=== PATIENT | male | born 1945 | race Caucasian/White ===

== ENCOUNTER 2017-05-15 19:34 | Emergency (ER) | payer OTHER, MEDICARE ==
[2017-05-15 19:40] VITALS: TEMP 97.8
[2017-05-15 20:05] LABS: BASOPHILS % (AUTO) 1 % (0-3); EOSINOPHILS % (AUTO) 5 % (0-9); HEMATOCRIT 34 % (39-53); MEAN CORPUSCULAR HGB CONC 36.6 gm/dl (32.0-36.0); MEAN CORPUSCULAR VOLUME 94 fL (80-100); MONOCYTES % (AUTO) 5.8 % (0-12); NEUTROPHILS % (AUTO) 63.9 % (37-80)
[2017-05-15 20:13] LABS: ALBUMIN 3.4 gm/dl (3.4-5.0); ALT 16 IU/L (14-63); CALCIUM 8.4 mg/dl (8.5-10.1); GLOM FILT RATE 55 mL/min (>60); POTASSIUM 3.6 mMol/L (3.5-5.1); SODIUM 139 mMol/L (136-145)
[2017-05-15] MEDS ORDERED: SODIUM CHLORIDE 0.9% 1000ML 1,000 ML IV ONE (20:58)
[2017-05-15] MEDS ORDERED: SODIUM CHLORIDE 0.9% FLUSH 10 ML SOL IV PRN (21:03)
[2017-05-15 22:29] LABS: APPEARANCE,URINE Clear; BILIRUBIN,URINE NEGATIVE (NEGATIVE); COLOR,URINE Yellow; GLUCOSE, URINE (UA) NEGATIVE (NEGATIVE); KETONES,URINE NEGATIVE (NEGATIVE); LEUKOCYTE ESTERASE ,URINE NEGATIVE (NEGATIVE); NITRATE,URINE NEGATIVE (NEGATIVE); OCCULT BLOOD,URINE NEGATIVE (NEG-TRACE); PH,URINE 6.5; UROBILINOGEN,URINE 0.2 (0.2-1.0 EU)
[2017-05-15 22:50] LABS: RBC,URINE NEG (0-3AV/HPF); WBC,URINE NEG (0-5AV/HPF)
[2017-05-16 00:26] VITALS: BP 171/66; PULSE 70; RESP 18; O2SAT 92
== END 2017-05-16 00:19 | disposition short-term general hospital (02) | DRG 312 ==
LOC: ED 19:34
DX: R55 Syncope and collapse (principal); R42 Dizziness and giddiness; R53.1 Weakness; R06.2 Wheezing
CPT/HCPCS: 36415; 70450; 71010; 71275; 80053; 80307; 81001; 83880; 84484; 85025; 85378; 93005; 99285; Q9967

== ENCOUNTER 2017-07-30 19:53 | Emergency (ER) | payer OTHER, MEDICARE ==
[2017-07-30] MEDS ORDERED: ASPIRIN 81 MG CHEWABLE CTB PO ONE (20:02)
[2017-07-30 20:04] LABS: BASOPHILS % (AUTO) 1 % (0-3); EOSINOPHILS % (AUTO) 4 % (0-9); HEMATOCRIT 35 % (39-53); MEAN CORPUSCULAR HGB CONC 36.4 gm/dl (32.0-36.0); MEAN CORPUSCULAR VOLUME 91 fL (80-100); MONOCYTES % (AUTO) 5.9 % (0-12); NEUTROPHILS % (AUTO) 68.9 % (37-80)
[2017-07-30 20:05] VITALS: PULSE 66; O2SAT 96
[2017-07-30] MEDS ORDERED: ONDANSETRON HCL 4 MG/2 ML SOL IV ONE (20:05)
[2017-07-30] MEDS ORDERED: MECLIZINE HYDROCHLORIDE 12.5 MG TAB PO ONE (20:06)
[2017-07-30] MEDS ORDERED: ONDANSETRON HCL 4 MG/2 ML SOL ONE (20:07)
[2017-07-30] MEDS ORDERED: MECLIZINE HYDROCHLORIDE 12.5 MG TAB ONE (20:07)
[2017-07-30] MEDS ORDERED: SODIUM CHLORIDE 0.9% 1000ML 1,000 ML IV SCH (20:15)
[2017-07-30 20:23] VITALS: BP 136/51; RESP 22; TEMP 98.9
[2017-07-30 20:23] LABS: CALCIUM 9.1 mg/dl (8.5-10.1); GLOM FILT RATE 58 mL/min (>60); POTASSIUM 3.1 mMol/L (3.5-5.1); SODIUM 137 mMol/L (136-145)
[2017-07-30] MEDS ORDERED: POTASSIUM CHLORIDE 10 MEQ TER PO ONE (20:31)
[2017-07-30] MEDS ORDERED: POTASSIUM CHLORIDE 10 MEQ TER ONE (20:33)
== END 2017-07-30 21:25 | disposition home or self-care (01) | DRG 312 ==
LOC: ED 19:53
DX: R55 Syncope and collapse (principal); E87.6 Hypokalemia
CPT/HCPCS: 71010; 80048; 84484; 85025; 93005; 96365; 96374; 99284; J2405

== ENCOUNTER 2018-02-11 18:44 | Emergency (ER) | payer OTHER, MEDICARE ==
[2018-02-11] MEDS ORDERED: PROCHLORPERAZINE EDISYLATE 5 MG/ML SOL ONE (18:54)
[2018-02-11] MEDS ORDERED: PROCHLORPERAZINE EDISYLATE 5 MG/ML SOL IV PRN (19:00)
[2018-02-11 19:21] LABS: BASOPHILS % (AUTO) 1 % (0-3); EOSINOPHILS % (AUTO) 3 % (0-9); HEMATOCRIT 35 % (39-53); HEMOGLOBIN 12.4 gm/dl (13.5-17.7); LYMPHOCYTES % (AUTO) 26.1 % (10-50); MEAN CORPUSCULAR HEMOGLOBIN 32.6 pg (27.0-32.0); MEAN CORPUSCULAR HGB CONC 35.1 gm/dl (32.0-36.0); MEAN CORPUSCULAR VOLUME 93 fL (80-100); MONOCYTES % (AUTO) 6.3 % (0-12); NEUTROPHILS % (AUTO) 63.3 % (37-80)
[2018-02-11 19:27] LABS: LACTIC ACID 3.1 mMol/L (0.0-2.0)
[2018-02-11 19:38] LABS: ALBUMIN 3.5 gm/dl (3.4-5.0); ALKALINE PHOSPHATASE 49 IU/L (46-116); ALT 24 IU/L (14-63); AST 15 IU/L (15-37); BILIRUBIN,TOTAL 0.4 mg/dl (0.2-1.0); BLOOD UREA NITROGEN 15 mg/dl (7-18); CALCIUM 8.1 mg/dl (8.5-10.1); CHLORIDE 101 mMol/L (98-107); GLOM FILT RATE 50 mL/min (>60); GLUCOSE 133 mg/dl (74-106); POTASSIUM 3.3 mMol/L (3.5-5.1); SODIUM 140 mMol/L (136-145); TOTAL PROTEIN 7.3 gm/dl (6.4-8.2); TROP I < 0.017 ng/ml (0.000-0.056)
[2018-02-11 20:14] VITALS: PULSE 60
[2018-02-11 21:24] VITALS: BP 154/68; RESP 23; TEMP 96.9; O2SAT 96
[2018-02-11] MEDS ORDERED: IBUPROFEN 600 MG TAB PO ONE (21:51)
[2018-02-11] MEDS ORDERED: IBUPROFEN 600 MG TAB ONE (21:52)
== END 2018-02-11 21:50 | disposition home or self-care (01) | DRG 312 ==
LOC: ED 18:44
DX: R55 Syncope and collapse (principal); R29.702 NIHSS score 2; Z86.73 Personal history of transient ischemic attack (TIA), and cerebral infarction without residual deficits
CPT/HCPCS: 36415; 70450; 72125; 80053; 84484; 85025; 85610; 93005; 99291; J0780; A9270-GY